=== PATIENT | female | born 1955 | race Caucasian/White ===

== ENCOUNTER 2017-04-13 13:34 | Inpatient (IN) | payer OTHER ==
[~2017-04-13] VITALS: Ht 152.4 cm; Wt 39.2 kg
--- NOTE | 2017-04-13 14:27 | DIAGNOSTIC IMAGING REPORT ---
PROCEDURE: XR CHEST 1 VIEW INDICATION: SHORTNESS OF BREATH TECHNIQUE: Portable AP view (1400 hours). COMPARISON: Compared to chest x-ray on 08/19/2016 and CTA thorax on 01/22/2014. FINDINGS: There is mild worsening in moderate chronic bilateral upper lung parenchymal / interstitial changes with mild changes at the right lung base. Findings are superimposed on COPD with cranial retraction of the aneta. Heart and mediastinum are normal. Thorax is normal. IMPRESSION: 1. Mild worsening in bilateral upper lung and right basilar parenchymal / interstitial changes. Findings suggest interstitial pneumonitis (e.g., viral, Mycoplasma). 2. Chronic obstructive pulmonary disease.
--- NOTE | 2017-04-13 15:19 | ED CLINICAL REPORT ---
Clinical Report - Physicians/Mid Levels [facility] [address] [place] [address] 04/13/2017 13:34 Patient: CAMILLE GERMAN Time Seen: 13:35. Arrived- By ambulance. Historian- patient and EMS personnel. HISTORY OF PRESENT ILLNESS Chief Complaint: DYSPNEA and HISTORY OF ASTHMA. This started several days ago and is still present and now worse. It was gradual in onset and has been constant. The dyspnea is severe. The patient has had a cough, wheezing and dyspnea on exertion. She has had moderate amounts of thick, green sputum. No fever, sweating episodes, chills, chest pain or calf pain. No foot swelling. Similar symptoms previously: Several times. REVIEW OF SYSTEMS No chills, fever, sweats, calf pain or chest pain. No palpitations, abdominal pain, constipation, diarrhea or nausea. No vomiting or urinary problems. All systems otherwise negative, except as recorded above. PAST HISTORY PCP - SABA DOVE Problems: Bowel Obstruction. Lung Disease. Gastroesophageal Reflux. Bronchitis. Pneumonia. Asthma. Reflux. Hypertension. Additional Surgeries: no known surgeries. Medications: HCTZ 1 pill, daily. Albuterol Sulfate Inhalation. Lisinopril Oral 40 mg, daily. Allergies: No Known Drug Allergy. SOCIAL HISTORY Never smoker. FAMILY HISTORY Denies family medical history. ADDITIONAL NOTES The nursing notes have been reviewed. PHYSICAL EXAM Vital Signs: 04/13/2017 13:33 BP: 151/85. HR: 130. RR: 28. O2 saturation: 100%. Temp: 98.3 F. Pain level now: 310. Have been reviewed. Appearance: Patient in severe distress. Eyes: Pupils equal, round and reactive to light. ENT: Pharynx normal. Uvula midline. Neck: Normal inspection. No jugular venous distention. CVS: Tachycardia. Respiratory: Respiratory distress. Fatigue. Retractions. Accessory muscle use. Prolonged expirations. Decreased air movement. Wheezing present. No stridor, rales or rhonchi. Abdomen: Soft and nontender. No organomegaly. Back: Normal inspection. No CVA tenderness. Skin: Skin warm and dry. Normal skin color. Normal skin turgor. Extremities: Extremities exhibit normal ROM. No calf tenderness. No lower extremity edema. LABS, X-RAYS, AND EKG EKG: Rate: 130. Tachycardia. Non-specific ST segment / T wave abnormalities. Changes present when compared to prior EKG. (22 January 2014). The study has been independently viewed by me. Chest X-ray: (IMPRESSION: 1. Mild worsening in bilateral upper lung and right basilar parenchymal / interstitial changes. Findings suggest interstitial pneumonitis (e.g., viral, Mycoplasma). 2. Chronic obstructive pulmonary disease.). The X-rays were interpreted by the radiologist and contemporaneously by me. Laboratory Tests: CBC w Diff: (CYNDY: 04/13/2017 13:57) ( MsgRcvd 04/13/2017 14:06) Final results Test Result Flag Units (Reference) WHITE BLOOD COUNT 17.1 H K/uL (4.5-11.5) RED BLOOD COUNT 4.86 M/uL (4.00-5.20) HEMOGLOBIN 13.9 gm/dL (12.0-16.0) HEMATOCRIT 42.2 % (36.0-46.0) MEAN CELL VOLUME 87 fL (80-100) MEAN CORPUSCULAR HGB 29 pg (26-34) MEAN CORPUSCULAR HGB CONC 33 g/dL (31-37) RED CELL DISTRIBUTION WIDTH 13.9 % (11.6-14.8) PLATELET COUNT 482 H K/uL (150-400) NEUTROPHIL % 85.4 H % (50-75) LYMPH % 5.3 L % (25-40) MONO % 9.2 % (3-14) EOSINOPHIL % 0 % (0-4) BASOPHIL % 0.1 % (0-2) [id number]: (CYNDY: 04/13/2017 13:57) ( MsgRcvd 04/13/2017 14:18) Final results Test Result Flag Units (Reference) D-DIMER QUANTITATIVE 0.34 ug/mLFEU (0.27-0.52) The primary value of this quantitative assay relates toits negative predictive value (i.e. exclusion) of pulmonaryembolism/deep vein thrombosis/DIC.Elevated levels of d-dimer may also occur with:, age, cancer, inflammation, liver disease,post-op, infection, hematoma, coronary disease, peripheralarteriopathy, bleeding disorders and thrombolytic treatment.Results should be correlated with other clinical andradiological data.Testing Methodology: Latex Immunoassay BNP: (CYNDY: 04/13/2017 13:57) ( [facility] 04/13/2017 14:36) Final results Test Result Flag Units (Reference) B-TYPE NATRIURETIC PEPTIDE 68.8 pg/ml (5-100) [id number]: (CYNDY: 04/13/2017 13:57) ( MsgRcvd 04/13/2017 14:51) Final results Test Result Flag Units (Reference) PROCALCITONIN <0.5 ng/mL (0-0.5) PCT Concentration: Interpretation : Risk/option for action PCT <=0.5 ng/mL : Systemic : Low risk forinfection(sepsis): progression to severeis not likely. : systemic infection.Local bacterial : CAUTION-PCT levelsinfection is : below 0.5 ng/mL do notpossible. : exclude an infection,because localizedinfections (withoutsystemic signs) may beassociated with suchlow levels. If PCT ismeasured very earlyafter a bacterialchallenge (usually <6hours), these valuesmay still be low. Inthis case PCT shouldbe re-assessed 6-24hours later. PCT >0.5 and : Systemic infection: Moderate risk for<= 2 ng/mL : (sepsis) is : progression to severepossible, but : systemic infection.other conditions : The patient should beare known to : closely monitoredelevate PCT. : both clinically andby re-assessing PCTwithin 6-24 hours. PCT > 2 ng/mL : Systemic infection: High risk for(sepsis) is likely: progression to severeunless other : systemic infection.causes are known. : PCT >= 10 ng/mL : Important systemic: High likelihood ofinflammatory : severe sepsis orresponse, almost : septic shock.exclusively due to:severe bacterial :sepsis or septic :shock. : CMP: (CYNDY: 04/13/2017 13:57) ( MsgRcvd 04/13/2017 14:20) Final results Test Result Flag Units (Reference) GLUCOSE 133 H mg/dL (70-110) BUN 7 mg/dL (7-18) CREATININE 0.5 L mg/dL (0.6-1.3) Estimated GFR >60 mL/min Estimated GFR- >60 mL/min Note: Persistent reduction over 3 months in eGFR<60 mL/min/1.73 m2 defines CKD. Patients with eGFR values>=60 mL/min/1.73 m2 may also have CKD if evidence ofpersistent proteinuria. Additional information may be foundat www.kidney.org. SODIUM 126 L mmol/L (136-145) POTASSIUM 4.2 mmol/L (3.5-5.1) CHLORIDE 88 L mmol/L (98-107) CARBON DIOXIDE 32 mmol/L (21-32) CALCIUM 9.1 mg/dL (8.5-10.1) TOTAL PROTEIN 8.7 H g/dL (6.4-8.2) ALBUMIN 2.9 L g/dL (3.3-5.0) BILIRUBIN, TOTAL 0.6 mg/dL (0.0-1.0) ALKALINE PHOSPHATASE 93 U/L (46-116) AST (SGOT) 19 U/L (15-37) ALT (SGPT) 20 U/L (12-78) LIPASE 132 U/L (73-393) AMYLASE 41 U/L (25-115) CPK 77 U/L (24-260) TROPONIN I <0.05 L ng/mL (0.00-1.5) TROPONIN REFERENCE RANGE:<0.1 NEGATIVE0.1-1.5 INDETERMINANT>1.5 POSITIVE . PROGRESS AND PROCEDURES Course of Care: Symptoms better. Vital signs have been reviewed. Physical exam findings are improved. Alert. There is accessory muscle use. Decreased breath sounds. No rales or wheezes. Tachycardic. Abdomen soft and nontender. Skin warm and dry. Discussed case with hospitalist, (Edmar). Reviewed test results. Agreed upon treatment plan and need for patient follow-up. Health care provider will see patient. Refers case to other health care provider. Patient/family counseled. Old medical records reviewed. Disposition: Admitted. CLINICAL IMPRESSION Hyponatremia. Asthma. Atypical pneumonia. Hypoxia. (Electronically signed by Abhinav Bonilla MD 04/16/2017 2:44)
--- NOTE | 2017-04-13 15:19 | ED ORDER SUMMARY ---
..... Patient: CAMILLE GERMAN OrderSheet [facility] VisitID: [id number] [place] [address] 62y, F Registration Date/Time: 04/13/2017 ORDER SHEET Weight: 40.8 kg (stated) Allergies: No Known Drug Allergy GENERAL ORDERS: Chest 1V Urgent (13:40 04/13/2017 Luis Alberto GRACE) (Ack 13:44 LNations ER Tech1) (13:59 JBoardley R.N.) Glass Finisher (Continuous) (13:41 04/13/2017 Luis Alberto GRACE) (Ack 13:42 LNations ER Tech1) (13:44 JBoardley R.N.) CBC w Diff Urgent (13:42 04/13/2017 Luis Alberto GRACE) (Ack 13:43 LNations ER Tech1) (13:58 JBoardley R.N.) CMP Urgent (13:42 04/13/2017 Luis Alberto GRACE) (Ack 13:43 LNations ER Tech1) (13:58 JBoardley R.N.) Amylase Urgent (13:42 04/13/2017 Luis Alberto GRACE) (Ack 13:43 LNations ER Tech1) (13:58 JBoardley R.N.) Lipase Urgent (13:42 04/13/2017 Luis Alberto GRACE) (Ack 13:44 LNations ER Tech1) (13:58 JBoardley R.N.) CPK Urgent (13:42 04/13/2017 Luis Alberto GRACE) (Ack 13:44 LNations ER Tech1) (13:58 JBoardley R.N.) Troponin-I Urgent (13:42 04/13/2017 Luis Alberto GRACE) (Ack 13:43 LNations ER Tech1) (13:58 JBoardley R.N.) BNP Urgent (13:42 04/13/2017 Luis Alberto GRACE) (Ack 13:44 LNations ER Tech1) (13:58 JBoardley R.N.) D-Dimer Urgent (13:42 04/13/2017 Luis Alberto GRACE) (Ack 13:44 LNations ER Tech1) (13:58 JBoardley R.N.) PCT (Procalcitonin) Urgent (13:42 04/13/2017 Luis Alberto GRACE) (Ack 13:44 LNations ER Tech1) (13:59 JBoardley R.N.) Oxygen (2 L/min) (NC) (13:42 04/13/2017 Luis Alberto GRACE) (Ack 13:42 LNations ER Tech1) (13:44 JBoardley R.N.) Pulse oximeter (13:42 04/13/2017 Luis Alberto GRACE) (Ack 13:42 LNations ER Tech1) (13:44 JBoardley R.N.) EKG - ER Stat (13:42 04/13/2017 Luis Alberto GRACE) (Ack 13:43 LNations ER Tech1) (13:44 PWeiler ER Tech1) Culture, Sputum (Sputum) (sputum) Urgent (14:03 04/13/2017 JBoardley R.N. verbal order read back to Luis Alberto GRACE) (Ack 14:06 LNations ER Tech1) (14:14 JBoardley R.N.) Blood Culture (No) (N/A) Urgent (14:41 04/13/2017 Luis Alberto GRACE) (Ack 14:50 LNations ER Tech1) (15:06 JBoardley R.N.) ABG (G) Urgent (14:47 04/13/2017 JBoardley R.N. verbal order read back to Luis Alberto GRACE) (Ack 14:48 LNations ER Tech1) (15:02 JBoardley R.N.) MEDICATION ORDERS: DuoNeb Neb Tx 1 unit dose (NOW) (13:41 04/13/2017 Luis Alberto GRACE) (13:47 JBoardley R.N.) IV FLUIDS: Solu-MEDROL IV 125 mg (NOW) (13:41 04/13/2017 Luis Alberto GRACE) (13:47 JBoardley R.N.) IV Saline Lock (13:42 04/13/2017 Luis Alberto GRACE) (13:47 JBoardley R.N.) Ceftriaxone IV 500 mg/50mL (NOW) (15:09 04/13/2017 Luis Alberto GRACE) (Ack 15:11 JBoardley R.N.) (Cancelled: Other15:29 JBoardley R.N.) Zithromax IV 500 mg/250 mL (NOW) (15:09 04/13/2017 Luis Alberto GRACE) (Ack 15:11 JBoardley R.N.) (15:42 JBoardley R.N.) Ceftriaxone IV 2 gm/50mL (NOW) (15:29 04/13/2017 Sara R.N. verbal order read back to Luis Alberto GRACE) (15:30 JBoardley R.N.) ORDER SHEET NOTES: [Electronically signed by Osmar Rubio R.N. (17:12 04/13/2017)] [Electronically signed by Abhinav Bonilla MD (02:44 04/16/2017)] [Electronically locked/signed by Osmar Rubio R.N. (17:12 04/13/2017)]
--- NOTE | 2017-04-13 15:19 | ED NURSING NOTES ---
Clinical Report - Nurses [facility] [address] [place] [address] 04/13/2017 13:34 Patient: CAMILLE GERMAN TRIAGE Triage time 13:Apr 13 2017. Acuity: LEVEL 3. Chief Complaint: SHORTNESS OF BREATH and DIFFICULTY BREATHING. 13:36 04/13/17. 13:36 04/13/17. Alert. SEPSIS SCREEN: Sepsis Screen. Negative (no infection suspected/documented). --13:54 Osmar Rubio R.N. 13:33 04/13/17. BP: 151/85. HR: 130. RR: 28. O2 saturation: 100% on non-rebreather. Temp: 98.3 F (oral). Pain level now: 3/10. Additional comments: 15 Liters . --13:54 Osmar Rubio R.N. Weight: 40.8 kg stated. Height/Length: 62 inches Per Patient. BMI: 16.5. --13:36 Osmar Rubio R.N. Medications Lisinopril Oral 40 mg, daily. --13:39 Osmar Rubio R.N. Albuterol Sulfate Inhalation. --13:39 Osmar Rubio R.N. HCTZ 1 pill, daily. --13:42 Osmar Rubio R.N. The following entry was struck and corrected by Osmar Rubio R.N., 13:42 (04/13/17) Reason for correction - other(correction). <<STRICKEN ENTRY-- Lisinopril Oral 20 mg, daily. --13:39 Osmar Rubio R.N. --END STRIKE>>. Medication/allergy information source: the patient and EMS. --13:54 Osmar Rubio R.N. Allergies No Known Drug Allergy. --13:39 Osmar Rubio R.N. History Arrived by EMS. Historian: EMS and patient. Primary physician (PETTY). 13:36 04/13/17. ( 3 days of SOB). She has had a cough and wheezing. Treatment GEOLOGY TEACHER: None. Oxygen administered by nonrebreather mask and at 15 liters/minute. Pre-hospital 12-lead EKG time: (1306 PM). Pre-hospital 12-lead EKG performed on-scene and interpreted by EMS. BP: 150 palp. HR: 130 regular. RR: 40 regular (labored and rapid). ( Pt was at [facility] with SOB, sats were in the low 80's on RA, EMS arrived, placed on 4LNC with sats 89%, placed on NRB with sats 100%, pt with 3 day history of SOB, pt with history of PNA and lung scarring.). PAST MEDICAL HX: Immunizations: up-to-date. SOCIAL HX: Never smoker. No alcohol use or drug use. Infectious disease exposure. (Family has a "cold"). ABUSE ASSESSMENT: No report of abuse. FALL RISK ASSESSMENT: Fall risk assessment completed. No fall risk identified. NUTRITIONAL RISK ASSESSMENT: The nutritional risk assessment revealed no deficiencies. FUNCTIONAL ASSESSMENT: Functional assessment: no impairments noted. LEARNING NEEDS ASSESSMENT: The learning needs assessment revealed no barriers. SKIN INTEGRITY ASSESSMENT: Skin integrity risk assessment completed. No skin integrity risk identified. --13:54 Osmar Rubio R.N. PROBLEMS: Bowel Obstruction. Lung Disease. Gastroesophageal Reflux. Bronchitis. Pneumonia. Asthma. LNMP - Last Normal Menstrual Period. Reflux. Hypertension. --13:39 Osmar Rubio R.N. ADDITIONAL SURGERIES: no known surgeries. Assessment 13:36 04/13/17. --13:54 Osmar Rubio R.N. Interventions 13:36 04/13/17. 13:36 04/13/17. ID and allergy band on patient. To treatment room. --13:54 Osmar Rubio R.N. PHYSICAL ASSESSMENT 13:38 04/13/17. To room via stretcher. GENERAL / NEURO / PSYCH: Alert. Oriented X 4. RESPIRATORY: Moderate respiratory distress. The patient can speak in full sentences. Crackles present bilaterally. CVS: Capillary refill less than 2 seconds. GI / : Abdomen soft. SKIN: Skin is warm and dry. --13:38 Osmar Rubio R.N. NURSING PROGRESS NOTES 13:32 04/13/2017 Site #1 started prior to arrival by EMS via IV in the left antecubital space with an 20g angiocath, with aseptic technique and good blood return (by EMS). --13:47 Osmar Rubio R.N. 13:36 04/13/2017 Duoneb (Ipratropium-Albuterol) Neb TX 1 unit dose given. Given by the respiratory therapist. Allergies verified and confirmed 5 rights. --13:47 Osmar Rubio R.N. 13:38 04/13/17. The plan of care for this patient has been created. quality assurance monitor final, pulse oximeter, end tidal CO2 monitor and NIBP monitor placed on patient; monitor alarms on. Patient gowned. Head of bed elevated. Call light placed in reach. Side rails up x 2. Bed placed in lowest position. Brakes of bed on. Patient ready for evaluation- chart flagged and notification provided. --13:38 Osmar Rubio R.N. 13:38 04/13/17. Cardiac rhythm: sinus tachycardia. --13:38 Osmar Rubio R.N. 13:42 04/13/2017 SOLU-MEDROL (MethylPREDNISolone Sodium Succ) IVP 125 mg given over 3 minute(s) via site #1. Allergies verified and confirmed 5 rights. IV patency established. IV site checked: no pain, redness, or swelling. IV flushed thoroughly pre- and post-medication administration. IVP given by RN. --13:47 Osmar Rubio R.N. Cardiac rhythm: sinus tachycardia. --13:52 Osmar Rubio R.N. 13:48 04/13/17. BP: 139/76. HR: 125. RR: 24. O2 saturation: 100%. End tidal CO2: 35 mmHg. Additional comments: Duo-Neb. --13:52 Osmar Rubio R.N. 13:52 04/13/17. ( Placed on oxymask 7 Liters by RT). --13:52 Osmar Rubio R.N. 13:55 04/13/17. Cardiac rhythm: sinus tachycardia. EKG time: (1342 PM). EKG was ordered, performed by a tech and shown to the ED physician. --13:55 Osmar Rubio R.N. 13:55 04/13/17. ( Lab at bedside). --13:55 Osmar Rubio R.N. 13:59 04/13/2017 [place] Response: no adverse reaction symptoms have improved the patient feels better. --13:59 Osmar Rubio R.N. 13:59 04/13/2017 SOLU-MEDROL IVP Response: symptoms have improved the patient feels better. --13:59 Osmar Rubio R.N. 14:04 04/13/17. ( sputum sample sent to lab). --14:04 Osmar Rubio R.N. 14:16 04/13/17. BP: 159/71. HR: 126. RR: 25. O2 saturation: 100% on face mask at 7 liters/minute. Additional comments: oxymask. --14:16 Osmar Rubio R.N. 14:16 04/13/17. Cardiac rhythm: sinus tachycardia. --14:16 Osmar Rubio R.N. 14:46 04/13/17. BP: 137/81. HR: 128. RR: 28. O2 saturation: 90% on room air. --14:47 Osmar Rubio R.N. 14:47 04/13/17. Cardiac rhythm: sinus tachycardia. --14:47 Osmar Rubio R.N. 15:06 04/13/17. BP: 137/81. HR: 125. RR: 28. O2 saturation: 97% on nasal cannula at 3 liters/minute. Additional comments: Pt placed back on NC after ABG. --15:07 Osmar Rubio R.N. 15:07 04/13/17. --15:07 Osmar Rubio R.N. 15:04/13/17. Cardiac rhythm: sinus tachycardia; (127). --15:07 Osmar Rubio R.N. 15:14 04/13/17. O2 saturation: 95% on nasal cannula at 3 liters/minute. Additional comments: switched to nasal cannula. --15:14 Osmar Rubio R.N. 15:14 04/13/17. --15:14 Osmar Rubio R.N. ( H/P forms on chart.). --15:24 [facility] ER Tech1 15:30 04/13/2017 Started 2 gm of Ceftriaxone IVPB in bag #1 50 mL; at 100 mL/hr over 30 minute(s) via site #1; Allergies verified and confirmed 5 rights. IV patency established. IV site checked: no pain, redness, or swelling. IV flushed thoroughly pre- and post-medication administration. Completed per protocol. --15:30 Osmar Rubio R.N. 15:42 04/13/2017 Started 500 mg of Zithromax (Azithromycin) IVPB in bag #1 255 mL; at 250 mL/hr over 1 hour(s) via site #1; Allergies verified and confirmed 5 rights. IV patency established. IV site checked: no pain, redness, or swelling. IV flushed thoroughly pre- and post-medication administration. Completed per protocol. --15:42 Osmar Rubio R.N. 15:42 04/13/2017 Ceftriaxone IVPB Discontinued: bag #1 infused. Total amount infused: 50 mL. IV patency established. IV site checked: no pain, redness, or swelling. IV flushed thoroughly. --15:42 Osmar Rubio R.N. Cardiac rhythm: sinus tachycardia. --15:44 Osmar Rubio R.N. 15:43 04/13/17. BP: 137/68. HR: 124. RR: 28. O2 saturation: 94% on nasal cannula at 4 liters/minute. Additional comments: increased to 4LNC. --15:44 Osmar Rubio R.N. 15:52 04/13/17. Patient informed about reason for wait and about plan of care. --15:52 Osmar Rubio R.N. 15:52 04/13/17. Patient waiting for admit bed. --15:52 Osmar Rubio R.N. ( OVERVIEW FAXED TO 2ND FLOOR). --16:01 [facility] ER Tech1. DISPOSITION / DISCHARGE 15:43 04/13/17. Patient has no belongings. Patient's personal items include, all given to pts . --15:43 Osmar Rubio R.N. 16:04 04/13/2017 Site #[address] upon admission; patent. Converted to saline lock; flushes easily (Running Azithromycin at 250 cc/hr, LTC 125 mLs, 125 mLs infused). --16:09 Osmar Rubio R.N. 16:10 04/13/17. Cardiac rhythm: sinus tachycardia. The goals identified in the patient's plan of care were met. Admitted. Report was given to a nurse via a phone call. Report included patient's care, treatment, medications, reviewed medication reconcilliation, and condition (including any recent changes or anticipated changes). Report was acknowledged and care was transferred. Bed obtained. FALL RISK ASSESSMENT: Fall risk assessment completed. No fall risk identified. --16:10 Osmar Rubio R.N. 16:08 04/13/17. BP: 135/71. HR: 119. RR: 28. O2 saturation: 95% on nasal cannula at 4 liters/minute. Temp: 98.3 F (oral). Pain level now: 12/26. --16:10 Osmar Rubio R.N. Departure time: 1620. --17:12 Osmar Rubio R.N. Locked/Released at 04/13/2017 17:12 by Osmar Rubio R.N.
--- NOTE | 2017-04-13 15:19 | ED ORDER SUMMARY ---
..... Patient: CAMILLE GERMAN OrderSheet [facility] VisitID: [id number] [place] [address] 62y, F Registration Date/Time: 04/13/2017 ORDER SHEET Weight: 40.8 kg (stated) Allergies: No Known Drug Allergy GENERAL ORDERS: Chest 1V Urgent (13:40 04/13/2017 Luis Alberto GRACE) (Ack 13:44 LNations ER Tech1) (13:59 JBoardley R.N.) Senior Account Clerk (Continuous) (13:41 04/13/2017 Luis Alberto GRACE) (Ack 13:42 LNations ER Tech1) (13:44 JBoardley R.N.) CBC w Diff Urgent (13:42 04/13/2017 Luis Alberto GRACE) (Ack 13:43 LNations ER Tech1) (13:58 JBoardley R.N.) CMP Urgent (13:42 04/13/2017 Luis Alberto GRACE) (Ack 13:43 LNations ER Tech1) (13:58 JBoardley R.N.) Amylase Urgent (13:42 04/13/2017 Luis Alberto GRACE) (Ack 13:43 LNations ER Tech1) (13:58 JBoardley R.N.) Lipase Urgent (13:42 04/13/2017 Luis Alberot GRACE) (Ack 13:44 LNations ER Tech1) (13:58 JBoardley R.N.) CPK Urgent (13:42 04/13/2017 Luis Alberto GRACE) (Ack 13:44 LNations ER Tech1) (13:58 JBoardley R.N.) Troponin-I Urgent (13:42 04/13/2017 Luis Alberto GRACE) (Ack 13:43 LNations ER Tech1) (13:58 JBoardley R.N.) BNP Urgent (13:42 04/13/2017 Luis Alberto GRACE) (Ack 13:44 LNations ER Tech1) (13:58 JBoardley R.N.) D-Dimer Urgent (13:42 04/13/2017 Luis Alberto GRACE) (Ack 13:44 LNations ER Tech1) (13:58 JBoardley R.N.) PCT (Procalcitonin) Urgent (13:42 04/13/2017 Luis Alberto GRACE) (Ack 13:44 LNations ER Tech1) (13:59 JBoardley R.N.) Oxygen (2 L/min) (NC) (13:42 04/13/2017 Luis Alberto GRACE) (Ack 13:42 LNations ER Tech1) (13:44 JBoardley R.N.) Pulse oximeter (13:42 04/13/2017 Luis Alberto GRACE) (Ack 13:42 LNations ER Tech1) (13:44 JBoardley R.N.) EKG - ER Stat (13:42 04/13/2017 Luis Alberto GRACE) (Ack 13:43 LNations ER Tech1) (13:44 PWeiler ER Tech1) Culture, Sputum (Sputum) (sputum) Urgent (14:03 04/13/2017 JBoardley R.N. verbal order read back to Luis Alberto GRACE) (Ack 14:06 LNations ER Tech1) (14:14 JBoardley R.N.) Blood Culture (No) (N/A) Urgent (14:41 04/13/2017 Luis Alberto GRACE) (Ack 14:50 LNations ER Tech1) (15:06 JBoardley R.N.) ABG (G) Urgent (14:47 04/13/2017 JBoardley R.N. verbal order read back to Luis Alberto GRACE) (Ack 14:48 LNations ER Tech1) (15:02 JBoardley R.N.) MEDICATION ORDERS: DuoNeb Neb Tx 1 unit dose (NOW) (13:41 04/13/2017 Luis Alberto GRACE) (13:47 JBoardley R.N.) IV FLUIDS: Solu-MEDROL IV 125 mg (NOW) (13:41 04/13/2017 Luis Alberto GRACE) (13:47 JBoardley R.N.) IV Saline Lock (13:42 04/13/2017 Luis Alberto GRACE) (13:47 JBoardley R.N.) Ceftriaxone IV 500 mg/50mL (NOW) (15:09 04/13/2017 Luis Alberto GRACE) (Ack 15:11 JBoardley R.N.) (Cancelled: Other15:29 JBoardley R.N.) Zithromax IV 500 mg/250 mL (NOW) (15:09 04/13/2017 Luis Alberto GRACE) (Ack 15:11 JBoardley R.N.) (15:42 JBoardley R.N.) Ceftriaxone IV 2 gm/50mL (NOW) (15:29 04/13/2017 Sara R.N. verbal order read back to Luis Alberto GRACE) (15:30 JBoardley R.N.) ORDER SHEET NOTES: [Electronically signed by Osmar Rubio R.N. (17:12 04/13/2017)] [Electronically signed by Abhinav Bonilla MD (02:44 04/16/2017)] [Electronically locked/signed by Osmar Rubio R.N. (17:12 04/13/2017)]
[2017-04-13] MEDS ORDERED: LISINOPRIL10 MG PO (16:21)
[2017-04-13] MEDS ORDERED: ALBUTEROL HFA60 DOSE IN (16:21)
[2017-04-13] MEDS ORDERED: HCTZ/TRIAMTEREN1 TA1 PO (16:21)
[2017-04-13 16:46] VITALS: BP 147/87
--- NOTE | 2017-04-13 17:13 | Progress Note ---
Subjective General Admission History and Physical Examination Admit AC-Tele; Patient Name: Lula Stinson Admission Date: 04/13/17 Primary Care Provider: Dr. Arriaza Attending Physician: Dr. Arsalan M.D. Admitting Physician: Chuck Sam MD Code Status: Full Code Room: 207 SUBJECTIVE Historian: Patient herself Reliability: Very Good Chief Complaint: Shortness of Breath Cough History of Present Illness: The patient is a 62 yo WF with a PMH of Obstructive airway disease,(Asthma), HTN , presenting with worsening cough with production over 5 days, shortness of breath and increased work of breathing. She was brought into the [facility] ED by her due to worsening illness. On the date of the admission she was tachycardia, tachypneic and diophoretic during the examination with the ED. Labs showed an elevated WBC count, low sodium. An ABG showed a PO2 of 48.4 with bicarb of 31.3 and PCO2 at 42.4. In the ED patient was found to be hypoxic on RA and required high flow 02, duonebs and she recieved IV fluid bolus, She was given antibiotics and a steroid. Pt. was admitted under Hospitalist services by Dr. Chuck Sam with diagnosis of Hypoxia, Pneumonia, Hypoantremia, Hypertension. PAST MEDICAL HISTORY Illnesses: 1. History of SBO over 4 years ago 2. Hypertension 3. Obstructive lung disease (asthma) Allergies: 1. NKDA Medications: 1. Lisinopril 20 mg po daily 2. Albuterol HFA 1-2 puff q4 hours as needed 3. Triamterene/HCTZ 25/37.5 one tab po daily. Surgery: 1. Appendectomy/docompression of SBO 2. Tonsilectomy Injuries: 1. No significatn Hospitalizations: 1. SBO FAMILY HISTORY Parents: 1. Father, Kidney failure passed in his 802, 2. Mother, Passed from COPD (60's) Children: 1. adult children at home Other significant family history: copd, CKD SOCIAL HISTORY 1. Marital Status: ([place]) 2. Gnosticist: uknown 3. Education: HS + 4. 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 Occupational health exposures: unknown. HABITS 1. Tobacco: no previous or current smoking history 2. Drugs: none 3. Alcohol: none HEALTH SUPERVISION Item/Test Record unavailable ADVANCED DIRECTIVES: 1. Living well: Uknown 2. POLST: none 3. 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 Donor card: Uknown. REVIEW OF SYSTEMS Remarkable for those things stated in the history of present illness and past medical history. Seventeen point review of system completed with the following notable findings: ROS Constitutional Sweats, Weakness. Denies: Chills. Eyes Denies: Vision Change. Respiratory SOB w/exertion, Sputum. Cardiovascular Other (tachypnea). Gastrointestinal Denies: Diarrhea, Constipation, Melena, Hematochezia. Genitourinary Denies: Frequency. Skin Denies: Rash. Neurological Denies: Weakness, Numbness, Incoordination. Physical Exam Vital Signs / I&Os Vital Signs Date Time Temp Pulse Resp B/P Pulse O2 O2 Flow FiO2 Ox Delivery Rate 04/13 1646 97.9 126 20 147/87 92 Nasal 4.0 Cannula 04/13 1335 7.0 General Appearance Oriented X3, Cooperative, increase work of breathing HEENT EOMI, Moist mucous membranes Lungs end expiratory wheeze. Sonorous rhonchi Neck Supple, No masses Cardiovascular Regular rate and rhythm, Normal S1 and S2 Abdomen Normal exam, Normal bowel sounds, Soft, No tenderness Rectal deferred Extremities No cyanosis, No clubbing Skin No Rashes Psych/Mental Status Mental status normal Assessment and Plan Problem List 1. Hypoxia Plan Hypoxemia emergency department during admission. We'll continue the oxygen for supplementation. Monitor sats over-night Walk Test before discharge. 2. Atypical pneumonia Plan Hospital for atypical pneumonia. Cultures including blood, sputum have been submitted. Strict hygiene parameters Antibiotics as indicated. 3. Asthma Plan Patient presents with findings of hypoxemia, bronchospasm Patient responded well to DuoNeb; with consistent improvement Continue DuoNeb with albuterol when needed. O2 supplementation as required Outpatient pulmonary function testing secondary to histor hypoxemia and bronchospasm 4. Hyponatremia Plan Seen with hyponatremia. This in the setting of pulmonary disease. Consider first volume depletion; (possibility of in appropriate ADH). Would rather fluid bolus. This should be left to the opinion of the primary care provider. Volume depleted illness, increase fluid challenges including multiple boluses. Avoid rapid advancement of the sodium level. Current status: Fair, unstable Anticipated discharge date: Anticipated discharge in 1-2 days Anticipated discharge placement: Home Patient care time: Time spent in chart review, patient interview, physical exam, CPOE, and care documentation: 70 minutes Visit to patient today: 1 Complexity of care: High Initial patient evaluation: Emergency department E&M Codes Admission: Inpt-High/82542
--- NOTE | 2017-04-13 17:13 | Progress Note ---
Subjective General Admission History and Physical Examination Admit AC-Tele; Patient Name: Lula Stinson Admission Date: 04/13/17 Primary Care Provider: Dr. Arriaza Attending Physician: Dr. Arsalan M.D. Admitting Physician: Chuck Sam MD Code Status: Full Code Room: 207 SUBJECTIVE Historian: Patient herself Reliability: Very Good Chief Complaint: Shortness of Breath Cough History of Present Illness: The patient is a 62 yo WF with a PMH of Obstructive airway disease,(Asthma), HTN , presenting with worsening cough with production over 5 days, shortness of breath and increased work of breathing. She was brought into the [facility] ED by her due to worsening illness. On the date of the admission she was tachycardia, tachypneic and diophoretic during the examination with the ED. Labs showed an elevated WBC count, low sodium. An ABG showed a PO2 of 48.4 with bicarb of 31.3 and PCO2 at 42.4. In the ED patient was found to be hypoxic on RA and required high flow 02, duonebs and she recieved IV fluid bolus, She was given antibiotics and a steroid. Pt. was admitted under Hospitalist services by Dr. Chuck Sam with diagnosis of Hypoxia, Pneumonia, Hypoantremia, Hypertension. PAST MEDICAL HISTORY Illnesses: 1. History of SBO over 4 years ago 2. Hypertension 3. Obstructive lung disease (asthma) Allergies: 1. NKDA Medications: 1. Lisinopril 20 mg po daily 2. Albuterol HFA 1-2 puff q4 hours as needed 3. Triamterene/HCTZ 25/37.5 one tab po daily. Surgery: 1. Appendectomy/docompression of SBO 2. Tonsilectomy Injuries: 1. No significatn Hospitalizations: 1. SBO FAMILY HISTORY Parents: 1. Father, Kidney failure passed in his 802, 2. Mother, Passed from COPD (60's) Children: 1. adult children at home Other significant family history: copd, CKD SOCIAL HISTORY 1. Marital Status: (Mynor) 2. Nondenominational: uknown 3. Education: HS + 4. 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 Occupational health exposures: unknown. HABITS 1. Tobacco: no previous or current smoking history 2. Drugs: none 3. Alcohol: none HEALTH SUPERVISION Item/Test Record unavailable ADVANCED DIRECTIVES: 1. Living well: Uknown 2. POLST: none 3. 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 Donor card: Uknown. REVIEW OF SYSTEMS Remarkable for those things stated in the history of present illness and past medical history. Seventeen point review of system completed with the following notable findings: ROS Constitutional Sweats, Weakness. Denies: Chills. Eyes Denies: Vision Change. Respiratory SOB w/exertion, Sputum. Cardiovascular Other (tachypnea). Gastrointestinal Denies: Diarrhea, Constipation, Melena, Hematochezia. Genitourinary Denies: Frequency. Skin Denies: Rash. Neurological Denies: Weakness, Numbness, Incoordination. Physical Exam Vital Signs / I&Os Vital Signs Date Time Temp Pulse Resp B/P Pulse O2 O2 Flow FiO2 Ox Delivery Rate 04/13 1646 97.9 126 20 147/87 92 Nasal 4.0 Cannula 04/13 1335 7.0 General Appearance Oriented X3, Cooperative, increase work of breathing HEENT EOMI, Moist mucous membranes Lungs end expiratory wheeze. Sonorous rhonchi Neck Supple, No masses Cardiovascular Regular rate and rhythm, Normal S1 and S2 Abdomen Normal exam, Normal bowel sounds, Soft, No tenderness Rectal deferred Extremities No cyanosis, No clubbing Skin No Rashes Psych/Mental Status Mental status normal Assessment and Plan Problem List 1. Hypoxia Plan Hypoxemia emergency department during admission. We'll continue the oxygen for supplementation. Monitor sats over-night Walk Test before discharge. 2. Atypical pneumonia Plan Hospital for atypical pneumonia. Cultures including blood, sputum have been submitted. Strict hygiene parameters Antibiotics as indicated. 3. Asthma Plan Patient presents with findings of hypoxemia, bronchospasm Patient responded well to DuoNeb; with consistent improvement Continue DuoNeb with albuterol when needed. O2 supplementation as required Outpatient pulmonary function testing secondary to histor hypoxemia and bronchospasm 4. Hyponatremia Plan Seen with hyponatremia. This in the setting of pulmonary disease. Consider first volume depletion; (possibility of in appropriate ADH). Would rather fluid bolus. This should be left to the opinion of the primary care provider. Volume depleted illness, increase fluid challenges including multiple boluses. Avoid rapid advancement of the sodium level. Current status: Fair, unstable Anticipated discharge date: Anticipated discharge in 1-2 days Anticipated discharge placement: Home Patient care time: Time spent in chart review, patient interview, physical exam, CPOE, and care documentation: 70 minutes Visit to patient today: 1 Complexity of care: High Initial patient evaluation: Emergency department E&M Codes Admission: Inpt-High/56405
[2017-04-13 18:38] VITALS: BP 130/75
[2017-04-14 02:55] VITALS: BP 123/77
[2017-04-14 07:00] VITALS: BP 141/89
--- NOTE | 2017-04-14 07:45 | Progress Note ---
Subjective General Patient states that she is feeling much better than yesterday. Is feeling still a little run down. Is able to talk in full sentences. No cp. Feels the IV steroids helped lots. Physical Exam Vital Signs / I&Os Vital Signs Date Time Temp Pulse Resp B/P Pulse O2 O2 Flow FiO2 Ox Delivery Rate 04/14 0717 4.0 04/14 0700 97.9 99 18 141/89 93 Nasal 4.0 Cannula 04/14 0255 98.1 105 20 123/77 94 Nasal 4.0 Cannula 04/13 2226 Nasal 4.0 Cannula 04/13 2023 4.0 04/13 1838 98.1 116 26 130/75 92 Nasal 4.0 Cannula 04/13 1820 4.0 04/13 1706 4.0 04/13 1646 97.9 126 20 147/87 92 Nasal 4.0 Cannula 04/13 1335 7.0 I&O 04/14 0000 04/13 1600 04/13 0800 Intake Total 120 Output Total 250 Balance -130 General Appearance Alert, Cooperative HEENT Normal exam Lungs soft crackle non focal good air movement. Cardiovascular Regular rate and rhythm, No murmurs, gallops, rubs Abdomen Soft, No tenderness Extremities No edema LAB Results Laboratory Tests 04/14 04/14 04/13 04/13 04/13 0600 0600 2157 2157 1447 Blood Gas Sample Site RR Total CO2 (24.0 - 30.0 mmol/L) 32.6 ABG pH (7.35 - 7.45) 7.48 ABG pCO2 at Pt Temp (35 - 45 mmHg) 42.4 ABG pO2 at Pt Temp (60.0 - 80.0 mmHg) 48.4 ABG HCO3 (20.0 - 26.0 mmol/L) 31.3 ABG O2 Sat Calc/Rubio (95.1 - 100.0 %) 85.0 ABG Base Excess (-6.0 - -6.0 mmol/L) 7.0 ABG Reduced Hgb (%) 14.7 ABG Carboxyhemoglobin (0.5 - 1.5 %) 1.7 ABG Methemoglobin (0.4 - 1.5 %) 0.1 Ben Test YES Other Total Hgb (12.0 - 16.0 g/dL) 13.9 A-a O2 Gradient (7.0 - 14.0 mmHg) 52.1 Hgb O2 Saturation (95.0 - 100.0 %) 83.5 Respiration Rate (/MIN) 20 Vent Mode SB FiO2 (20 - 101 %) 21 Chemistry Plasma Sodium (136 - 145 mmol/L) 131 Plasma Potassium (3.5 - 5.1 mmol/L) 4.1 Plasma Chloride (98 - 107 mmol/L) 96 CO2 (Enzymatic) (21 - 32 mmol/L) 32 BUN (7 - 18 mg/dL) 7 Creatinine (0.6 - 1.3 mg/dL) 0.4 Est GFR ( Amer) (mL/min) >60 Est GFR (Non-Af Amer) (mL/min) >60 Glucose (70 - 110 mg/dL) 127 Plasma Calcium (8.5 - 10.1 mg/dL) 9.0 Plasma Magnesium (1.8 - 2.4 mg/dL) 1.8 Total Bilirubin (0.0 - 1.0 mg/dL) 0.2 AST (15 - 37 U/L) 17 ALT (12 - 78 U/L) 18 Alkaline Phosphatase (46 - 116 U/L) 78 Creatine Kinase (24 - 260 U/L) 57 70 Troponin (0.00 - 1.5 ng/mL) <0.05 <0.05 Total Protein (6.4 - 8.2 g/dL) 7.5 Albumin (3.3 - 5.0 g/dL) 2.4 Procalcitonin (0 - 0.5 ng/mL) <0.5 Hematology WBC (4.5 - 11.5 K/uL) 12.7 RBC (4.00 - 5.20 M/uL) 4.23 Hgb (12.0 - 16.0 gm/dL) 12.1 Hct (36.0 - 46.0 %) 36.8 MCV (80 - 100 fL) 87 MCH (26 - 34 pg) 29 RDW (11.6 - 14.8 %) 13.7 Neut % (Auto) (50 - 75 %) 92.8 Lymph % (Auto) (25 - 40 %) 5.3 [place] % (Auto) (3 - 14 %) 1.9 Eos % (Auto) (0 - 4 %) 0 Baso % (Auto) (0 - 2 %) 0 Plt Count, EDTA (150 - 400 K/uL) 399 PUBS MCHC (31 - 37 g/dL) 33 04/13 04/13 04/13 1357 1357 1357 Chemistry Plasma Sodium (136 - 145 mmol/L) 126 Plasma Potassium (3.5 - 5.1 mmol/L) 4.2 Plasma Chloride (98 - 107 mmol/L) 88 CO2 (Enzymatic) (21 - 32 mmol/L) 32 BUN (7 - 18 mg/dL) 7 Creatinine (0.6 - 1.3 mg/dL) 0.5 Est GFR ( Amer) (mL/min) >60 Est GFR (Non-Af Amer) (mL/min) >60 Glucose (70 - 110 mg/dL) 133 Plasma Calcium (8.5 - 10.1 mg/dL) 9.1 Total Bilirubin (0.0 - 1.0 mg/dL) 0.6 AST (15 - 37 U/L) 19 ALT (12 - 78 U/L) 20 Alkaline Phosphatase (46 - 116 U/L) 93 Creatine Kinase (24 - 260 U/L) 77 Troponin (0.00 - 1.5 ng/mL) <0.05 B-Natriuretic Peptide (5 - 100 pg/ml) 68.8 Total Protein (6.4 - 8.2 g/dL) 8.7 Albumin (3.3 - 5.0 g/dL) 2.9 Amylase (25 - 115 U/L) 41 Lipase (73 - 393 U/L) 132 Procalcitonin (0 - 0.5 ng/mL) <0.5 Coagulation D-Dimer, Quantitative (0.27 - 0.52 ug/mLFEU) 0.34 Hematology WBC (4.5 - 11.5 K/uL) 17.1 RBC (4.00 - 5.20 M/uL) 4.86 Hgb (12.0 - 16.0 gm/dL) 13.9 Hct (36.0 - 46.0 %) 42.2 MCV (80 - 100 fL) 87 MCH (26 - 34 pg) 29 RDW (11.6 - 14.8 %) 13.9 Neut % (Auto) (50 - 75 %) 85.4 Lymph % (Auto) (25 - 40 %) 5.3 [place] % (Auto) (3 - 14 %) 9.2 Eos % (Auto) (0 - 4 %) 0 Baso % (Auto) (0 - 2 %) 0.1 Plt Count, EDTA (150 - 400 K/uL) 482 PUBS MCHC (31 - 37 g/dL) 33 Microbiology Date/Time Procedure - Status Source Growth 04/13 1504 Blood Culture - RECD BLOOD 04/13 1500 Blood Culture - RECD BLOOD 04/13 1400 Respiratory Culture - RES SPUTUM 04/13 1400 Culture and Gram Stain - RES SPUTUM Assessment and Plan Problem List 1. Atypical pneumonia Plan Has copd vs atypical pneumonia, no hx of smoking ? early onset genetic emphesema. 2. Hyponatremia Plan ? siadh and will re check na in am. 3. Asthma Plan stable 4. Leukocytosis Plan Is doing well at this time a little better but still elevated wbc. Continue abx no change today change to PO tomorrow. Wean O2 as able today.
[2017-04-14 10:24] VITALS: BP 137/78
[2017-04-14 14:34] VITALS: BP 135/83
[2017-04-14 18:18] VITALS: BP 144/74
[2017-04-14 22:19] VITALS: BP 146/84
[2017-04-15] VITALS (8 sets, daily range): BP systolic 150–175; BP diastolic 76–109
--- NOTE | 2017-04-15 08:05 | Progress Note ---
Subjective General Patient has been feeling a lot better. No cp, has some sob and increase in wob at times. 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 More with increase in being stressed out. Would like to go home MARKY. Has some fast HR and elevated bp noted per nursing. Physical Exam Vital Signs / I&Os Vital Signs Date Time Temp Pulse Resp B/P Pulse O2 O2 Flow FiO2 Ox Delivery Rate 04/15 0735 3.0 04/15 0709 98.1 119 20 175/96 93 Nasal 3.0 Cannula 04/15 0355 166/98 04/15 0323 3.0 04/15 0316 103 166/105 04/15 0250 98.1 104 19 169/109 92 Nasal 3.0 Cannula 04/14 2219 97.9 109 19 146/84 92 Nasal 3.0 Cannula 04/14 1946 3.0 04/14 1818 97.7 125 19 144/74 91 Nasal 3.0 Cannula 04/14 1550 Nasal 3.0 Cannula 04/14 1533 3.0 04/14 1434 97.9 115 19 135/83 90 Nasal 2.5 Cannula 04/14 1242 3.0 04/14 1024 98.4 118 16 137/78 92 Nasal 3.0 Cannula 04/14 0808 Nasal 3.0 Cannula I&O 04/15 0000 04/14 1600 04/14 0800 Intake Total 144 988 1358 Output Total 1050 850 875 Balance -650 -230 1150 General Appearance Alert, Cooperative HEENT Normal exam, Atraumatic Lungs coarse BS with a little crackle Cardiovascular Regular rate and rhythm, No murmurs, gallops, rubs Abdomen Soft, No tenderness Extremities No edema Neurological Normal exam LAB Results Laboratory Tests 04/15 0520 Chemistry Plasma Sodium (136 - 145 mmol/L) 136 Plasma Potassium (3.5 - 5.1 mmol/L) 4.3 Plasma Chloride (98 - 107 mmol/L) 99 CO2 (Enzymatic) (21 - 32 mmol/L) 31 BUN (7 - 18 mg/dL) 9 Creatinine (0.6 - 1.3 mg/dL) 0.4 Est GFR ( Amer) (mL/min) >60 Est GFR (Non-Af Amer) (mL/min) >60 Glucose (70 - 110 mg/dL) 122 Plasma Calcium (8.5 - 10.1 mg/dL) 8.9 Hematology WBC (4.5 - 11.5 K/uL) 20.1 RBC (4.00 - 5.20 M/uL) 4.00 Hgb (12.0 - 16.0 gm/dL) 11.4 Hct (36.0 - 46.0 %) 35.2 MCV (80 - 100 fL) 88 MCH (26 - 34 pg) 28 RDW (11.6 - 14.8 %) 13.9 Neut % (Auto) (50 - 75 %) 94.5 Lymph % (Auto) (25 - 40 %) 3.0 [place] % (Auto) (3 - 14 %) 2.5 Eos % (Auto) (0 - 4 %) 0 Baso % (Auto) (0 - 2 %) 0 Plt Count, EDTA (150 - 400 K/uL) 406 PUBS MCHC (31 - 37 g/dL) 32 Assessment and Plan Problem List 1. Hypoxia Plan Patient continues with low O2. Will check on CXR and continue to follow. Try to wean off of IV meds today to orals. 2. Atypical pneumonia Plan continue abs 3. Asthma Plan Change to spiriva and advair 4. Leukocytosis Plan Has increase in WBC today
--- NOTE | 2017-04-15 08:05 | Progress Note ---
Subjective General Patient has been feeling a lot better. No cp, has some sob and increase in wob at times. 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 More with increase in being stressed out. Would like to go home MARKY. Has some fast HR and elevated bp noted per nursing. Physical Exam Vital Signs / I&Os Vital Signs Date Time Temp Pulse Resp B/P Pulse O2 O2 Flow FiO2 Ox Delivery Rate 04/15 0735 3.0 04/15 0709 98.1 119 20 175/96 93 Nasal 3.0 Cannula 04/15 0355 166/98 04/15 0323 3.0 04/15 0316 103 166/105 04/15 0250 98.1 104 19 169/109 92 Nasal 3.0 Cannula 04/14 2219 97.9 109 19 146/84 92 Nasal 3.0 Cannula 04/14 1946 3.0 04/14 1818 97.7 125 19 144/74 91 Nasal 3.0 Cannula 04/14 1550 Nasal 3.0 Cannula 04/14 1533 3.0 04/14 1434 97.9 115 19 135/83 90 Nasal 2.5 Cannula 04/14 1242 3.0 04/14 1024 98.4 118 16 137/78 92 Nasal 3.0 Cannula 04/14 0808 Nasal 3.0 Cannula I&O 04/15 0000 04/14 1600 04/14 0800 Intake Total 891 214 6255 Output Total 1050 850 875 Balance -650 -230 1150 General Appearance Alert, Cooperative HEENT Normal exam, Atraumatic Lungs coarse BS with a little crackle Cardiovascular Regular rate and rhythm, No murmurs, gallops, rubs Abdomen Soft, No tenderness Extremities No edema Neurological Normal exam LAB Results Laboratory Tests 04/15 0520 Chemistry Plasma Sodium (136 - 145 mmol/L) 136 Plasma Potassium (3.5 - 5.1 mmol/L) 4.3 Plasma Chloride (98 - 107 mmol/L) 99 CO2 (Enzymatic) (21 - 32 mmol/L) 31 BUN (7 - 18 mg/dL) 9 Creatinine (0.6 - 1.3 mg/dL) 0.4 Est GFR ( Amer) (mL/min) >60 Est GFR (Non-Af Amer) (mL/min) >60 Glucose (70 - 110 mg/dL) 122 Plasma Calcium (8.5 - 10.1 mg/dL) 8.9 Hematology WBC (4.5 - 11.5 K/uL) 20.1 RBC (4.00 - 5.20 M/uL) 4.00 Hgb (12.0 - 16.0 gm/dL) 11.4 Hct (36.0 - 46.0 %) 35.2 MCV (80 - 100 fL) 88 MCH (26 - 34 pg) 28 RDW (11.6 - 14.8 %) 13.9 Neut % (Auto) (50 - 75 %) 94.5 Lymph % (Auto) (25 - 40 %) 3.0 [place] % (Auto) (3 - 14 %) 2.5 Eos % (Auto) (0 - 4 %) 0 Baso % (Auto) (0 - 2 %) 0 Plt Count, EDTA (150 - 400 K/uL) 406 PUBS MCHC (31 - 37 g/dL) 32 Assessment and Plan Problem List 1. Hypoxia Plan Patient continues with low O2. Will check on CXR and continue to follow. Try to wean off of IV meds today to orals. 2. Atypical pneumonia Plan continue abs 3. Asthma Plan Change to spiriva and advair 4. Leukocytosis Plan Has increase in WBC today
--- NOTE | 2017-04-15 09:33 | DIAGNOSTIC IMAGING REPORT ---
PROCEDURE: XR CHEST 2 VIEW INDICATION: pneumonia TECHNIQUE: PA and lateral view. COMPARISON: Chest x-ray 04/13/2017 and 08/19/2016. FINDINGS: Improved interstitial markings in both apices and right lung base superimposed on hyperinflation and COPD. Upper retraction of the aneta. Heart size, mediastinum and pulmonary vessels are normal. No suspicious osseous lesions. IMPRESSION: 1. Improved biapical and right basilar interstitial pneumonitis 2. COPD
[2017-04-16] VITALS: BP 149/96
[2017-04-16 02:40] VITALS: BP 136/88
--- NOTE | 2017-04-16 02:44 | ED MED RECONCILIATION SUMMARY ---
Patient: CAMILLE GERMAN Medication Reconciliation Report [facility] VisitID: [id number] [address] [place] [address] 62y, F Registration Date/Time: 04/13/2017 Weight: 40.8 kg Height/Length: 62 in. BMI: 16.5 ALLERGIES: No Known Drug Allergy The patient's Home Medications are listed below: THE FOLLOWING MEDICATIONS NEED TO BE RECONCILED: Albuterol Sulfate Inhalation HCTZ 1 pill, daily Lisinopril Oral 40 mg, daily The source(s) of the original Home Medication information: EMS patient The following Medications were given to the patient in the Emergency Department: Duoneb [Neb Tx] Neb TX 1 unit dose, administered: 04/13/2017 1:36:00 PM SOLU-MEDROL [IVP] IVP 125 mg, administered: 04/13/2017 1:42:00 PM Ceftriaxone [IVPB] IVPB bolus 0, then 2 gm 100 mL/hr, administered: 04/13/2017 3:30:00 PM Zithromax [IVPB] IVPB bolus 0, then 500 mg 250 mL/hr, administered: 04/13/2017 3:42:00 PM The following Medications were prescribed to the patient: None.
--- NOTE | 2017-04-16 02:44 | ED MAR SUMMARY ---
..... Medication Administration Record [facility] [address] [place] [address] Patient: CAMILLE GERMAN Visit ID: [id number] 62y, F Weight: 40.8 kg Height/Length: 62 in BMI: 16.5 ALLERGIES: No Known Drug Allergy Given 13:36 04/13/2017 Osmar Rubio R.N. Medication Administered: DUONEB [NEB TX] (IPRATROPIUM-ALBUTEROL), Dose: 1 unit dose Neb TX. Medication Ordered: DuoNeb Neb Tx 1 unit dose (NOW). Given 13:42 04/13/2017 Osmar Rubio R.N. Medication Administered: SOLU-MEDROL [IVP] (METHYLPREDNISOLONE SODIUM SUCC), Dose: 125 mg IVP over 3 minute(s), Site: #1 left AC. Medication Ordered: Solu-MEDROL IV 125 mg (NOW). Start 15:30 04/13/2017 Osmar Rubio R.N., Stop 15:42 04/13/2017 Osmar Rubio R.N. Medication Administered: CEFTRIAXONE [IVPB], Dose: 2 gm IVPB over 30 minute(s), Rate: 100 mL/hr, Dispensed: 50 mL bag, Site: #1 left AC. Medication Ordered: Ceftriaxone IV 2 gm/50mL (NOW). Start 15:42 04/13/2017 Osmar Rubio R.N. Medication Administered: ZITHROMAX [IVPB] (AZITHROMYCIN), Dose: 500 mg IVPB over 1 hour(s), Rate: 250 mL/hr, Dispensed: 255 mL bag, Site: #1 left AC. Medication Ordered: Zithromax IV 500 mg/250 mL (NOW).
--- NOTE | 2017-04-16 02:44 | ED DISCHARGE INSTRUCTIONS ---
Patient: CAMILLE GERMAN General Instructions Located [facility] VisitID: [id number] [address] [place] [address] 62y, F Registration Date/Time: 04/13/2017 Hyponatremia. Asthma. Atypical pneumonia. Hypoxia. (Electronically signed by Abhinav Bonilla MD 04/16/2017 2:44)
--- NOTE | 2017-04-16 02:44 | ED MAR SUMMARY ---
..... Medication Administration Record [facility] [address] [place] [address] Patient: CAMILLE GERMAN Visit ID: [id number] 62y, F Weight: 40.8 kg Height/Length: 62 in BMI: 16.5 ALLERGIES: No Known Drug Allergy Given 13:36 04/13/2017 Osmar Rubio R.N. Medication Administered: DUONEB [NEB TX] (IPRATROPIUM-ALBUTEROL), Dose: 1 unit dose Neb TX. Medication Ordered: DuoNeb Neb Tx 1 unit dose (NOW). Given 13:42 04/13/2017 Osmar Rubio R.N. Medication Administered: SOLU-MEDROL [IVP] (METHYLPREDNISOLONE SODIUM SUCC), Dose: 125 mg IVP over 3 minute(s), Site: #1 left AC. Medication Ordered: Solu-MEDROL IV 125 mg (NOW). Start 15:30 04/13/2017 Osmar Rubio R.N., Stop 15:42 04/13/2017 Osmar Rubio R.N. Medication Administered: CEFTRIAXONE [IVPB], Dose: 2 gm IVPB over 30 minute(s), Rate: 100 mL/hr, Dispensed: 50 mL bag, Site: #1 left AC. Medication Ordered: Ceftriaxone IV 2 gm/50mL (NOW). Start 15:42 04/13/2017 Osmar Rubio R.N. Medication Administered: ZITHROMAX [IVPB] (AZITHROMYCIN), Dose: 500 mg IVPB over 1 hour(s), Rate: 250 mL/hr, Dispensed: 255 mL bag, Site: #1 left AC. Medication Ordered: Zithromax IV 500 mg/250 mL (NOW).
--- NOTE | 2017-04-16 02:44 | ED DISCHARGE INSTRUCTIONS ---
Patient: CAMILLE GERMAN General Instructions [facility] VisitID: [id number] [address] [place] [address] 62y, F Registration Date/Time: 04/13/2017 Hyponatremia. Asthma. Atypical pneumonia. Hypoxia. (Electronically signed by Abhinav Bonilla MD 04/16/2017 2:44)
--- NOTE | 2017-04-16 02:44 | ED MED RECONCILIATION SUMMARY ---
Patient: CAMILLE GERMAN Medication Reconciliation Report [facility] VisitID: [id number] [address] [place] [address] 62y, F Registration Date/Time: 04/13/2017 Weight: 40.8 kg Height/Length: 62 in. BMI: 16.5 ALLERGIES: No Known Drug Allergy The patient's Home Medications are listed below: THE FOLLOWING MEDICATIONS NEED TO BE RECONCILED: Albuterol Sulfate Inhalation HCTZ 1 pill, daily Lisinopril Oral 40 mg, daily The source(s) of the original Home Medication information: EMS patient The following Medications were given to the patient in the Emergency Department: Duoneb [Neb Tx] Neb TX 1 unit dose, administered: 04/13/2017 1:36:00 PM SOLU-MEDROL [IVP] IVP 125 mg, administered: 04/13/2017 1:42:00 PM Ceftriaxone [IVPB] IVPB bolus 0, then 2 gm 100 mL/hr, administered: 04/13/2017 3:30:00 PM Zithromax [IVPB] IVPB bolus 0, then 500 mg 250 mL/hr, administered: 04/13/2017 3:42:00 PM The following Medications were prescribed to the patient: None.
[2017-04-16 06:19] VITALS: BP 135/80
[2017-04-16] MEDS ORDERED: ZITHROMAX250 MG PO (10:00)
[2017-04-16] MEDS ORDERED: CEPHALEXIN500 MG PO (10:00)
[2017-04-16] MEDS ORDERED: ADVAIR DISKU1 IN (10:01)
[2017-04-16] MEDS ORDERED: SPIRIVA18 MCG IN (10:01)
[2017-04-16] MEDS ORDERED: PREDNISONE20 MG PO (10:02)
--- NOTE | 2017-04-16 10:05 | Provider's Discharge Care Plan ---
Problem, Goal, Plan Problem List 1. Atypical pneumonia Goals: Improved health/wellness, Therapeutic intervention Instructions: Follow up as directed, Take meds as directed 2. COPD (chronic obstructive pulmonary disease) Goals: Improve disease control, Therapeutic intervention Instructions: Follow up as directed, Take meds as directed
[2017-04-16 10:21] VITALS: BP 150/84
--- NOTE | 2017-04-16 10:53 | DISCHARGE SUMMARY ---
ADMIT DATE: 04/13/2017 DISCHARGE DATE: 04/16/2017 ADMISSION DIAGNOSES: 1. Hypoxia 2. Atypical pneumonia 3. Asthma 4. Hyponatremia DISCHARGE DIAGNOSES: 1. Hyponatremia, resolved 2. Hypoxia, improving 3. Atypical pneumonia, improving 4. Asthma/chronic obstructive pulmonary disease, improving BRIEF HISTORY: This is taken from Dr. aSm's admit note on 04/13/2017. This is a 62-year-old female with a past medical history of asthma, hypertension, presenting with complaints of cough, with production for 5 days, shortness of breath and increased work of breathing. She was brought into the emergency department by her due to worsening symptoms. On admission, she was significantly tachycardic, tachypneic, and diaphoretic during the exam in the emergency department. HOSPITAL COURSE: The patient was admitted to the hospital on Rocephin, azithromycin, and Solu-Medrol. She very slowly improved over the ensuing days. She did have a significant leukocytosis; however, that was thought to be steroid-induced, as it very quickly resolved as steroids were decreased. Additionally, chest x-ray showed improvement, and the patient clinically was improving. The patient did continue to have tachycardia throughout her hospital stay, running 100 to even 120; however, in looking back at her clinic charts, the patient has chronic tachycardia that usually runs between 100 and 120. PHYSICAL EXAMINATION: At the time of discharge, blood pressure is 135/80, pulse is 101, O2 saturation is 95% on 2 liters. Temperature is 36.7 degrees Celsius. This is a well-appearing female sitting in a chair in no apparent distress. Head is atraumatic, normocephalic. Trachea is midline. Lungs are coarse diffusely, but with good air movement and no wheezing. Heart: S1, S2, regular rate and rhythm. No S3, S4, murmurs, gallops, or rubs. Abdomen soft, nontender, nondistended without hepatosplenomegaly or masses. Bowel sounds are active. There is no peripheral edema. The patient has minimal increased work of breathing. At time of discharge, patient was still hypoxic off oxygen and was discharged on oxygen. DISCHARGE INSTRUCTIONS/MEDICATIONS: The patient will be discharged home with instructions to follow up within 3 days with her primary care provider. Diet: Regular. Activity: Regular. Medications: Azithromycin 250 mg p.o. daily x2 days. Keflex 500 mg p.o. t.i.d. x7 days. Advair Diskus 1 inhalation b.i.d. Spiriva 18 mcg, 1 capsule inhaled daily. Prednisone 40 mg p.o. daily x5 days, 20 mg p.o. daily x5 days, then 10 mg p.o. daily x5 days. Albuterol HFA 2 puffs inhaled q.4 hours p.r.n. Hydrochlorothiazide/ triamterene 25/37.5 mg 1 tablet p.o. daily. Lisinopril 40 mg p.o. daily.
== END 2017-04-16 12:37 | disposition home or self-care (01) | DRG 190 ==
LOC: ED SRH 13:34 → ACUTE2 SRH 15:59 → TRANS SRH 15:59 → ACUTE2 SRH 16:26
PROVIDERS: ADMIT Emergency Medicine
DX: J44.0 Chronic obstructive pulmonary disease with (acute) lower respiratory infection (principal); J18.9 Pneumonia, unspecified organism; E87.1 Hypo-osmolality and hyponatremia; R09.02 Hypoxemia; I10 Essential (primary) hypertension; R00.0 Tachycardia, unspecified
CPT/HCPCS: 90047; 90065; 90074; 90100; 90127; 90148; 90309; 90616; 91320; 91556; 92235; 92530; 92610; 92720; 93004; 95059